=== PATIENT | male | born 1965 | race Caucasian/White ===

== ENCOUNTER 2018-10-17 20:07 | Emergency (ER) | payer MEDICAID ==
[~2018-10-17] VITALS: Ht 162.6 cm; Wt 68.2 kg
[~2018-10-17 20:07] MED LIST: ASPI81TA52 PO; BACL10TA PO; CLON-527 PO; GABA-532 PO; MIRT15TA PO; NITR0.4T51 SL; PALI9TAB PO; ZOLP5TAB8 PO; [UNRECOGNIZED DRUG - OTHER] PO
[2018-10-17 20:11] VITALS: BP 142/81
[2018-10-17 20:54] LABS: BASOPHILS % (AUTO) 0.1 % (0-1); EOSINOPHILS # (AUTO) 0.1 X10'3 (0-0.9); EOSINOPHILS % (AUTO) 1.1 % (0-6); HEMATOCRIT 48.4 % (42.0-52.0); HEMOGLOBIN 16.4 g/dl (14.0-17.9); LYMPHOCYTES % (AUTO) 23.9 % (21-51); MEAN CORPUSCULAR HEMOGLOBIN 29.2 PG (27.0-31.0); MEAN CORPUSCULAR HGB CONC 33.8 % (33.0-36.5); MEAN CORPUSCULAR VOLUME 86.3 FL (78-98); MEAN PLATELET VOLUME 6.9 FL (7.4-10.4); MONOCYTES # (AUTO) 0.4 X10'3 (0-0.9); MONOCYTES % (AUTO) 5.3 % (2-12); NEUTROPHILS # (AUTO) 5.9 X10'3 (1.8-7.7); NEUTROPHILS % (AUTO) 69.6 % (42-75); PLATELET COUNT 361 X10'3 (140-440); RED BLOOD COUNT 5.61 X10'6 (4.70-6.10); RED CELL DISTRIBUTION WIDTH 13.3 % (11.5-14.5); WHITE BLOOD COUNT 8.4 X10'3 (4.5-11.0)
[2018-10-17 21:15] LABS: ALANINE AMINOTRANSFERASE 56 U/L (12-78); ALBUMIN/GLOBULIN RATIO 1.1 (1.1-1.5); ALKALINE PHOSPHATASE 149 IU/L (46-116); ANION GAP 8 (8-16); ASPARTATE AMINO TRANSFERASE 30 U/L (10-37); BILIRUBIN,TOTAL 0.4 MG/DL (0.1-1.0); BLOOD UREA NITROGEN 10 MG/DL (7-18); BUN/CREATININE RATIO 11.6 (5.4-32.0); CHLORIDE 103 MMOL/L (99-107); CREATININE 0.86 MG/DL (0.60-1.10); POTASSIUM 3.5 MMOL/L (3.5-5.1); SODIUM 140 MMOL/L (135-145); TOTAL CARBON DIOXIDE 29.2 MMOL/L (24-32); TOTAL PROTEIN 7.8 G/DL (6.4-8.2); eGFR > 90 ML/MIN
[2018-10-17 21:17] LABS: GLUCOSE 118 MG/DL (70-104)
[2018-10-17 21:18] LABS: D-DIMER 0.25 MG/L FEU (0-0.50)
== END 2018-10-17 22:23 | disposition home or self-care (01) ==
LOC: ER 20:08
DX: J20.9 Acute bronchitis, unspecified (principal); I25.10 Atherosclerotic heart disease of native coronary artery without angina pectoris; I25.2 Old myocardial infarction; Z79.82 Long term (current) use of aspirin; Z79.899 Other long term (current) drug therapy
CPT/HCPCS: 36415; 71046; 80053; 84145; 85025; 85379; 99284

== ENCOUNTER 2019-07-18 22:40 | Inpatient (IN) | payer MEDICAID ==
[~2019-07-18] VITALS: Ht 165.1 cm; Wt 72.0 kg
--- NOTE | 2019-07-18 22:53 | NUR ---
darrel gutierrez [phone]
[2019-07-18] MEDS ORDERED: normal saline 1000ML IV soln IVB ONE (23:00)
[2019-07-18 23:07] LABS: BASOPHILS % (AUTO) 0.2 % (0-1); EOSINOPHILS % (AUTO) 0.1 % (0-6); LYMPHOCYTES # (AUTO) 1.6 X10'3 (1.1-4.8); LYMPHOCYTES % (AUTO) 16.5 % (21-51); MEAN CORPUSCULAR HEMOGLOBIN 32.6 PG (27.0-31.0); MEAN CORPUSCULAR HGB CONC 33.8 g/dL (33.0-36.5); MEAN CORPUSCULAR VOLUME 96.5 FL (78-98); MEAN PLATELET VOLUME 7.1 FL (7.4-10.4); MONOCYTES # (AUTO) 0.7 X10'3 (0-0.9); MONOCYTES % (AUTO) 7.2 % (2-12); NEUTROPHILS # (AUTO) 7.2 X10'3 (1.8-7.7); PLATELET COUNT 344 X10'3 (140-440); RED BLOOD COUNT 1.24 X10'6 (4.70-6.10); RED CELL DISTRIBUTION WIDTH 16.4 % (11.5-14.5); WHITE BLOOD COUNT 9.5 X10'3 (4.5-11.0)
[2019-07-18 23:15] LABS: PARTIAL THROMBOPLASTIN TIME 22 SECONDS (22-32)
--- NOTE | 2019-07-18 23:15 | NUR ---
Contacted Poison Control all required labs ordered, monitor for [employer] and respiratory depression. Seizure threshold can be lowered. Recommended mucomist if LFT's are elevated.
[2019-07-18 23:37] LABS: ALANINE AMINOTRANSFERASE 23 U/L (12-78); ALBUMIN 2.7 G/DL (3.4-5.0); ALKALINE PHOSPHATASE 84 IU/L (46-116); ANION GAP 9 (8-16); ASPARTATE AMINO TRANSFERASE 15 U/L (10-37); BILIRUBIN,TOTAL 0.2 MG/DL (0.1-1.0); BLOOD UREA NITROGEN 17 MG/DL (7-18); BUN/CREATININE RATIO 19.3 (5.4-32.0); CALCIUM 7.6 MG/DL (8.5-10.1); CHLORIDE 99 MMOL/L (99-107); CREATININE 0.88 MG/DL (0.60-1.10); GLUCOSE 124 MG/DL (70-104); POTASSIUM 3.7 MMOL/L (3.5-5.1); SODIUM 133 MMOL/L (135-145); TOTAL PROTEIN 5.4 G/DL (6.4-8.2); eGFR 90 ML/MIN
[2019-07-18 23:41] LABS: ACETAMINOPHEN < 2.0 UG/ML (10-30); ETHANOL < 0.010 GM/DL (0.0-0.010)
[2019-07-18] MEDS ORDERED: famotidine/PF 10 mg/ml inj IV ONE (23:45)
[2019-07-18] MEDS ORDERED: tranexamic acid 100mg/ml inj. IV ONE (23:45)
[2019-07-18] MEDS ORDERED: octreotide inj. 1,250 MCG in normal saline 250ml IV soln 250 ML IV SCH (23:45)
[2019-07-18] MEDS ORDERED: tranexamic acid inj. 720 MG in normal saline 100ml IV soln 100 ML IV ONE (23:50)
[2019-07-19] VITALS (29 sets, daily range): BP systolic 89–137; BP diastolic 50–87
[2019-07-19] MEDS ORDERED: normal saline 1000ML IV soln IVB ONE (01:10)
[2019-07-19] MEDS ORDERED: mag hydrox/Alum hydrox/simeth 30ml oral suspension PO PRN (01:25)
[2019-07-19] MEDS ORDERED: ondansetron/PF 4mg/2ml inj IV PRN (01:25)
[2019-07-19] MEDS ORDERED: HYDROcodone/acetaminophen 5mg/325mg tablet PO PRN (01:25)
[2019-07-19] MEDS ORDERED: pantoprazole 40 MG vial IV ONE (01:25)
[2019-07-19] MEDS ORDERED: magnesium hydroxide 30ml (MOM) UD suspension PO PRN (01:25)
[2019-07-19] MEDS ORDERED: acetaminophen 325mg tablet PO PRN ×2 (01:25)
--- NOTE | 2019-07-19 02:00 | NUR ---
recieved pt report from Irma BURT RN.
--- NOTE | 2019-07-19 02:15 | NUR ---
pt arrived to unit with all belongings, pt oriented to room, tele attached to pt, call light in reach, bed low and locked, VS stable
--- NOTE | 2019-07-19 02:34 | NUR ---
NOTIFIED called DR. Tavarez trop 0.70, . aware no new orders at this time
[2019-07-19] MEDS: pantoprazole 40MG/NS 100ML BAG 100 ML IV SCH ×5 (03:22→23:35)
--- NOTE | 2019-07-19 06:00 | NUR ---
Patient in room PCU 3013. I have received report from William RN and had the opportunity to ask questions and assume patient care.
--- NOTE | 2019-07-19 06:41 | NUR ---
Problems reprioritized. Patient report given, questions answered & plan of care reviewed with Nell RN.
[2019-07-19 08:14] LABS: TROPONIN I 1.05 NG/ML (0.0-0.05)
[2019-07-19 08:17] LABS: BASOPHILS % (AUTO) 0.3 % (0-1); EOSINOPHILS % (AUTO) 0.2 % (0-6); LYMPHOCYTES # (AUTO) 1.6 X10'3 (1.1-4.8); LYMPHOCYTES % (AUTO) 17.2 % (21-51); MEAN CORPUSCULAR HEMOGLOBIN 31.6 PG (27.0-31.0); MEAN CORPUSCULAR HGB CONC 33.9 g/dL (33.0-36.5); MEAN CORPUSCULAR VOLUME 93.2 FL (78-98); MEAN PLATELET VOLUME 7.5 FL (7.4-10.4); MONOCYTES # (AUTO) 0.8 X10'3 (0-0.9); MONOCYTES % (AUTO) 8.3 % (2-12); NEUTROPHILS # (AUTO) 6.9 X10'3 (1.8-7.7); PLATELET COUNT 294 X10'3 (140-440); RED BLOOD COUNT 2.09 X10'6 (4.70-6.10); RED CELL DISTRIBUTION WIDTH 15.5 % (11.5-14.5); WHITE BLOOD COUNT 9.3 X10'3 (4.5-11.0)
--- NOTE | 2019-07-19 08:18 | NUR ---
Page to Dr Osman re:Room 9457G Rafy Stevens critical troponin 1.05, please advise Opal 9243
[2019-07-19 08:20] LABS: HEMOGLOBIN 6.6 g/dl (14.0-17.9)
[2019-07-19 08:21] LABS: HEMATOCRIT 19.5 % (42.0-52.0)
--- NOTE | 2019-07-19 08:29 | NUR ---
Page to Dr Osman re:Room 2807J Rafy Stevens critical H/H 6.6/19.5, please advise Opal [id number]
[2019-07-19] MEDS ORDERED: nicotine 14mg patch - 24hr TD ONE (09:30)
--- NOTE | 2019-07-19 11:23 | NUR ---
PAGER ID: [phone] MESSAGE: [id number] Edwin Stevens latest Trop 1.1, FYI. Flood or Nell [phone]
--- NOTE | 2019-07-19 12:16 | NUR ---
Report on labwork and patient status given to Desi at Poison Control. No further labs requested, no further questions.
[2019-07-19 14:52] LABS: HEMATOCRIT 22.1 % (42.0-52.0); HEMOGLOBIN 7.5 g/dl (14.0-17.9); MEAN CORPUSCULAR HEMOGLOBIN 31.4 PG (27.0-31.0); MEAN CORPUSCULAR HGB CONC 34.1 g/dL (33.0-36.5); MEAN CORPUSCULAR VOLUME 92.1 FL (78-98); MEAN PLATELET VOLUME 7.5 FL (7.4-10.4); PLATELET COUNT 291 X10'3 (140-440); RED CELL DISTRIBUTION WIDTH 15.3 % (11.5-14.5); WHITE BLOOD COUNT 9.5 X10'3 (4.5-11.0)
--- NOTE | 2019-07-19 15:10 | NUR ---
Page to Dr Osman re:Room 2592Z Rafy Rodney h/h [facility] first unit [facility] 7.5.1 do you want me to give second unit? please advise Opal Monroy Addendum: 07/19/19 at 1514 by Opal Goldstein RN Return call from Dr Osman, go ahead and give second unit
[2019-07-19] MEDS ORDERED: TRAM50TA2 PO (15:22)
[2019-07-19] MEDS ORDERED: TEMA15CA PO (16:11)
[2019-07-19] MEDS ORDERED: IBUP-1984 PO (16:40)
[2019-07-19] MEDS ORDERED: QUET200T30 PO (16:40)
[2019-07-19] MEDS ORDERED: QUET400T12 PO (16:40)
[2019-07-19] MEDS ORDERED: PALI1.5T2 PO (16:40)
[2019-07-19] MEDS ORDERED: ACET-75 PO (16:40)
[2019-07-19] MEDS ORDERED: ATOR40TA72 PO (16:40)
[2019-07-19] MEDS ORDERED: MIRT45TA83 PO (16:40)
[2019-07-19] MEDS ORDERED: BENZ1TAB7 PO ×2 (16:40→18:59)
[2019-07-19] MEDS ORDERED: FLUT16SP26 IH (16:40)
[2019-07-19] MEDS ORDERED: LORA10TA7 PO (16:40)
[2019-07-19] MEDS ORDERED: BACL20TA PO ×2 (16:40→17:58)
[2019-07-19] MEDS ORDERED: TEMA30CA PO (16:40)
[2019-07-19] MEDS ORDERED: BENZ-49 PO (16:40)
[2019-07-19] MEDS ORDERED: MIRT15TA8 PO (16:40)
[2019-07-19] MEDS ORDERED: fentaNYL/PF 50MCG/1 ML 2ML syringe ONE (16:44)
[2019-07-19] MEDS ORDERED: LIDOcaine Viscous 15ml cup ONE (16:44)
[2019-07-19] MEDS ORDERED: MIDAZolam 5mg/5ml vial ONE (16:44)
[2019-07-19] MEDS ORDERED: epiNEPHrine 0.1mg/ml 10ml syringe ONE (17:30)
--- NOTE | 2019-07-19 18:00 | NUR ---
Problems reprioritized. Patient report given, questions answered & plan of care reviewed with William RN.
--- NOTE | 2019-07-19 18:13 | NUR ---
Patient in room PCU 3013. I have received report from Nell BRADEN and had the opportunity to ask questions and assume patient care.
[2019-07-19] MEDS ORDERED: quetiapine 100mg tablet PO SCH (22:25)
[2019-07-19] MEDS ORDERED: mirtazapine 15mg tablet PO SCH (22:25)
[2019-07-20 02:00] VITALS: BP 126/75
[2019-07-20] MEDS: pantoprazole 40MG/NS 100ML BAG 100 ML IV SCH ×2 (04:32→11:00)
[2019-07-20 06:00] VITALS: BP 120/63
--- NOTE | 2019-07-20 06:00 | NUR ---
Patient in room PCU 3013. I have received report from William Rn and had the opportunity to ask questions and assume patient care.
--- NOTE | 2019-07-20 06:10 | NUR ---
Problems reprioritized. Patient report given, questions answered & plan of care reviewed with Nell RN.
[2019-07-20 06:12] LABS: BASOPHILS % (AUTO) 0.3 % (0-1); EOSINOPHILS % (AUTO) 0.2 % (0-6); HEMATOCRIT 25.2 % (42.0-52.0); HEMOGLOBIN 8.7 g/dl (14.0-17.9); LYMPHOCYTES # (AUTO) 1.1 X10'3 (1.1-4.8); LYMPHOCYTES % (AUTO) 10.2 % (21-51); MEAN CORPUSCULAR HEMOGLOBIN 31.4 PG (27.0-31.0); MEAN CORPUSCULAR HGB CONC 34.4 g/dL (33.0-36.5); MEAN CORPUSCULAR VOLUME 91.3 FL (78-98); MEAN PLATELET VOLUME 7.6 FL (7.4-10.4); MONOCYTES # (AUTO) 0.9 X10'3 (0-0.9); MONOCYTES % (AUTO) 8.6 % (2-12); NEUTROPHILS # (AUTO) 8.4 X10'3 (1.8-7.7); NEUTROPHILS % (AUTO) 80.7 % (42-75); PLATELET COUNT 296 X10'3 (140-440); RED BLOOD COUNT 2.76 X10'6 (4.70-6.10); WHITE BLOOD COUNT 10.4 X10'3 (4.5-11.0)
[2019-07-20 06:41] LABS: ALBUMIN 2.3 G/DL (3.4-5.0); ANION GAP 10 (8-16); BLOOD UREA NITROGEN 11 MG/DL (7-18); BUN/CREATININE RATIO 12.2 (5.4-32.0); CALCIUM 7.2 MG/DL (8.5-10.1); CHLORIDE 108 MMOL/L (99-107); CHOL/HDL RATIO 3.3 (0.00-4.99); CHOLESTEROL 75 MG/DL (0-200); GLUCOSE 108 MG/DL (70-104); HDL CHOLESTEROL 23 MG/DL (35-60); LDL CHOLESTEROL 31 MG/DL (50-100); POTASSIUM 3.4 MMOL/L (3.5-5.1); SODIUM 143 MMOL/L (135-145); TOTAL CARBON DIOXIDE 24.6 MMOL/L (24-32); TRIGLYCERIDES 149 MG/DL (20-135); eGFR 87 ML/MIN
[2019-07-20] MEDS ORDERED: nicotine 14mg patch - 24hr TD SCH (08:00)
[2019-07-20] MEDS ORDERED: potassium Cl 20 mEq SR tablet PO ONE (08:20)
[2019-07-20] MEDS ORDERED: baclofen 10mg tablet PO PRN (08:20)
[2019-07-20] MEDS ORDERED: traMADol 50MG tablet PO PRN (08:20)
[2019-07-20] MEDS ORDERED: nitroGLYCERIN 0.4mg SUBLingual tab SL PRN (08:20)
[2019-07-20] MEDS ORDERED: benztropine 1mg tablet PO ONE (08:20)
[2019-07-20 10:22] LABS: HEMATOCRIT 25.7 % (42.0-52.0); HEMOGLOBIN 8.8 g/dl (14.0-17.9); MEAN CORPUSCULAR HEMOGLOBIN 31.2 PG (27.0-31.0); MEAN CORPUSCULAR HGB CONC 34.5 g/dL (33.0-36.5); MEAN CORPUSCULAR VOLUME 90.6 FL (78-98); MEAN PLATELET VOLUME 6.8 FL (7.4-10.4); PLATELET COUNT 312 X10'3 (140-440); RED BLOOD COUNT 2.83 X10'6 (4.70-6.10); RED CELL DISTRIBUTION WIDTH 15.4 % (11.5-14.5); WHITE BLOOD COUNT 10.8 X10'3 (4.5-11.0)
[2019-07-20 11:00] VITALS: BP 123/70
--- NOTE | 2019-07-20 11:07 | NUR ---
Page to Dr Osman re: [facility] Room 8580G Rafy Stevens H/H 8.8/25.7 Troponin 0.83
[2019-07-20] MEDS ORDERED: PANT-47 PO (11:10)
--- NOTE | 2019-07-20 12:45 | NUR ---
Patient discharged stable, discharge instructions given to patient verbally and written. Patient verbalized understanding. All personal belongings returned to patient. Patient to follow up with Dr Moore's office and states he already has an appointment scheduled. Patient pulled out his own IV's x 2, RN observed both cannula's intact. Tele box removed and returned to public safety telecommunicator room. [email or web address] in [place] on [address] at pt's request. Patient left to private vehicle accompanied by family.
[2019-07-20] MEDS ORDERED: benztropine 1mg tablet PO SCH (20:00)
[2019-07-20] MEDS ORDERED: temazepam 15mg capsule PO SCH (21:00)
[2019-07-20] MEDS ORDERED: mirtazapine 15mg tablet PO SCH (21:00)
[2019-07-21] MEDS ORDERED: atorvastatin 20mg tablet PO SCH (08:00)
[2019-07-21] MEDS ORDERED: QUETIAPINE FUMARATE 200 MG PO SCH (08:00)
[2019-07-21] MEDS ORDERED: loratadine 10mg tablet PO SCH (08:00)
== END 2019-07-20 12:42 | disposition home or self-care (01) | DRG 241 ==
LOC: ER 22:41 → PCU 3S 07-19 02:14 → CMPBEDREQ 07-19 02:18
PROVIDERS: ADMIT Hospitalist; ATTEND Family Medicine
PROC: 0W3P8ZZ Control Bleeding in Gastrointestinal Tract, Via Natural or Artificial Opening Endoscopic (ICD-10-PCS; principal; 2019-07-19)
PROC: 0DB68ZX Excision of Stomach, Via Natural or Artificial Opening Endoscopic, Diagnostic (ICD-10-PCS; 2019-07-19)
PROC: 30233N1 Transfusion of Nonautologous Red Blood Cells into Peripheral Vein, Percutaneous Approach (ICD-10-PCS; 2019-07-19)
DX: K26.4 Chronic or unspecified duodenal ulcer with hemorrhage (principal); I21.A1 Myocardial infarction type 2; D62 Acute posthemorrhagic anemia; G89.29 Other chronic pain; I25.10 Atherosclerotic heart disease of native coronary artery without angina pectoris; F12.90 Cannabis use, unspecified, uncomplicated; F41.9 Anxiety disorder, unspecified; M54.2 Cervicalgia; M54.9 Dorsalgia, unspecified; R00.0 Tachycardia, unspecified; I25.2 Old myocardial infarction; Z88.0 Allergy status to penicillin
CPT/HCPCS: 36415; 43236; 43239; 70450; 71045; 80048; 80053; 80061; 80178; 80320; 80329; 82140; 84484; 85025; 85027; 85610; 85730; 86885; 86900; 86901; 86920; 87081; 93005; 93306; 96374; 99152; 99153; 99291; A4620; C9113; G0378; J0171; J2250; J2354; J3010; J3490; J7040; J7050; P9016